=== PATIENT | male | born 1945 | race Caucasian/White ===

== ENCOUNTER → 2020-09-06 10:47 | Outpatient (BNVA) | payer MEDICARE, BC, SELFPAY | PROVIDERS: PCP Internal Medicine; Referring Provider Internal Medicine; Visit Provider Internal Medicine Cardiovascular Disease | DX: I25.10 Atherosclerotic heart disease of native coronary artery without angina pectoris (principal); Z86.711 Personal history of pulmonary embolism; Z95.3 Presence of xenogenic heart valve; I10 Essential (primary) hypertension; Z79.01 Long term (current) use of anticoagulants; C85.10 Unspecified B-cell lymphoma, unspecified site | CPT/HCPCS: 99214; 99213 ==

== ENCOUNTER 2021-04-13 08:01 | Outpatient (CLI) | payer MEDICARE, BC, SELFPAY ==
[2021-04-13 08:27] LABS: Abs Immature Grans 0.03 10^3/uL (0.0-0.06); Absolute Basophil Count 0.02 10^3/uL (0.0-0.2); Absolute Eosinophil Count 0.07 10^3/uL (0.0-0.7); Absolute Lymphocyte Count 0.91 10^3/uL (1.2-3.4); Absolute Monocyte Count 0.48 10^3/uL (0.1-0.8); Absolute Neutrophil Count 4.47 10^3/uL (1.2-6.7); Basophils % 0.3; Eosinophils % 1.2; HCT 39.5 % (40.0-50.0); HGB 13.2 g/dL (13.5-17.5); Immature Grans % 0.5; Lymphocytes % 15.2; MCH 30.8 pg (27.0-33.0); MCHC 33.4 % (32.0-36.0); MCV 92.3 fL (80-95); MPV 8.6 fL (8.0-11.0); Neutrophils % 74.8; Nucleated RBC 0 %; Platelet Count 157 10^3/uL (130-400); RBC 4.28 10^6/uL (4.36-5.78); RDW 14.5 % (11.8-14.1); RDW-SD 49.4 fL; WBC 5.98 10^3/uL (4.4-10.8)
[2021-04-13 08:53] LABS: ALT 27 U/L (16-63); AST 25 U/L (15-37); Albumin 3.8 g/dL (3.4-5.0); Alkaline Phosphatase 84 U/L (46-116); Anion Gap 5.8 mmol/L (3-11); BUN 13 mg/dL (7-18); Bilirubin, Total 1.2 mg/dL (0.2-1.0); CO2 29.2 mmol/L (21.0-32.0); CREATININE 0.8 mg/dL (0.70-1.30); Calcium 8.6 mg/dL (8.5-10.1); Chloride 105 mmol/L (98-107); Glucose 136 mg/dL (74-106); LDH 168 U/L (85-227); Potassium 4.2 mmol/L (3.5-5.1); Sodium 140 mmol/L (136-145); Total Protein 6.8 g/dL (6.4-8.2)
== END 2021-04-13 08:02 | disposition home or self-care (01) ==
LOC: LBO 08:03
PROVIDERS: PCP Internal Medicine; Visit Provider Internal Medicine Hematology & Oncology
DX: C82.08 Follicular lymphoma grade I, lymph nodes of multiple sites (principal)
CPT/HCPCS: 36415; 80053; 83615; 85025

== ENCOUNTER 2021-09-07 04:31 | Outpatient (CLI) | payer MEDICARE, BC, SELFPAY ==
[2021-09-07 10:08] LABS: Abs Immature Grans 0.03 10^3/uL (0.0-0.06); Absolute Basophil Count 0.03 10^3/uL (0.0-0.2); Absolute Eosinophil Count 0.05 10^3/uL (0.0-0.7); Absolute Lymphocyte Count 0.83 10^3/uL (1.2-3.4); Absolute Monocyte Count 0.55 10^3/uL (0.1-0.8); Basophils % 0.5; Eosinophils % 0.9; HCT 41.9 % (40.0-50.0); HGB 14.1 g/dL (13.5-17.5); Immature Grans % 0.5; Lymphocytes % 14.3; MCH 30.9 pg (27.0-33.0); MCHC 33.7 % (32.0-36.0); MCV 91.7 fL (80-95); MPV 9.3 fL (8.0-11.0); Monocytes % 9.5; Neutrophils % 74.3; Platelet Count 164 10^3/uL (130-400); RBC 4.57 10^6/uL (4.36-5.78); RDW 14.1 % (11.8-14.1); RDW-SD 47.7 fL; WBC 5.79 10^3/uL (4.4-10.8)
[2021-09-07 10:20] LABS: ALT 27 U/L (16-63); AST 16 U/L (15-37); Albumin 3.7 g/dL (3.4-5.0); Alkaline Phosphatase 94 U/L (46-116); Anion Gap 3.3 mmol/L (3-11); BUN 8 mg/dL (7-18); CO2 30.7 mmol/L (21.0-32.0); CREATININE 0.9 mg/dL (0.70-1.30); Calcium 8.2 mg/dL (8.5-10.1); Chloride 106 mmol/L (98-107); Glucose 86 mg/dL (74-106); LDH 171 U/L (85-227); Potassium 3.7 mmol/L (3.5-5.1); Sodium 140 mmol/L (136-145); Total Protein 6.7 g/dL (6.4-8.2)
== END 2021-09-07 04:32 | disposition home or self-care (01) ==
LOC: LBO 04:31
PROVIDERS: Internal Medicine Hematology & Oncology; PCP Internal Medicine; Visit Provider Internal Medicine Hematology & Oncology
DX: C82.08 Follicular lymphoma grade I, lymph nodes of multiple sites (principal)
CPT/HCPCS: 36415; 80053; 83615; 85025

== ENCOUNTER 2022-02-22 02:07 | Outpatient (RCR) | payer MEDICARE, BC, SELFPAY | END 2022-03-13 23:59 | disposition home or self-care (01) | LOC: INF 02:07 | PROVIDERS: PCP Internal Medicine; Visit Provider Nurse Practitioner Family | DX: C82.90 Follicular lymphoma, unspecified, unspecified site (principal); Z29.8 Encounter for other specified prophylactic measures | CPT/HCPCS: 96372; Q0221 ==

== ENCOUNTER 2023-01-19 10:08 | Day surgery (SDC) | payer MEDICARE, BC, SELFPAY ==
--- NOTE | 2023-01-18 19:48 | HPE_ITS ---
Assessment and Plan Assessment and plan (1) Nuclear age-related cataract, left eye: Status: Acute Assessment and plan: Assessment: Visually significant cataract, left eye. Plan: Cataract extraction with lens implantation, left eye. History of Present Illness History of Present Illness Chief Complaint: Progressive decreased vision Narrative: The patient is a 77-year-old male with history of progressive decreased vision in his left eye. He is significantly symptomatic with decreased vision at both near and distance. He notes difficulty reading books and road signs are blurry. On examination he was noted to have a moderate nuclear cataract in the left eye. The option of cataract surgery was offered to the patient and he wished to proceed. Review of Systems All systems reviewed & are unremarkable except as noted in HPI and below PFSH All Active Problems Nuclear age-related cataract, left eye (Acute) Bioprosthetic aortic valve replacement during current hospitalization (Acute) History of pulmonary embolism (Acute) Medical History Anxiety Aortic regurgitation Ascending aortic aneurysm 5cm Per pt. states had repaired 2018 Pt. states he f/u cardiology 3 months ago at [facility] Primary care DVT (deep venous thrombosis) Follicular lymphoma Gonarthrosis Heart murmur History of alcohol abuse HLD (hyperlipidemia) Hypertensive disorder Insomnia Open wound of hand with tendon injury Osteoarthritis Postoperative hypothyroidism Presence of IVC filter Pulmonary embolism Pulmonary insufficiency Transient cerebral ischemia Varicose veins of lower extremity Vitamin D deficiency Surgical History History of total left knee replacement (TKR) Social History Smoking/Tobacco Use Status: Former Tobacco Use Quit Date: 05/14/69 Smoking risk assessment performed?: Yes Alcohol Intake: former Drug use: Never Substance use type: does not use Housing: house Do you feel safe at home: Yes Do you feel safe in your relationship?: Yes Meds Allergies and Home Medications Allergies Allergy/AdvReac Type Severity Reaction Status Date / Time No Known Allergies Allergy Verified 01/19/23 10:19 Home Medications Medication Instructions Recorded Confirmed Type acetaminophen 500 mg capsule 500 mg PO Q6H PRN 08/26/19 01/18/23 History apixaban 5 mg tablet (Eliquis) 5 mg PO BID 08/26/19 01/19/23 History atorvastatin 40 mg tablet 40 mg PO DAILY 08/26/19 01/19/23 History levothyroxine 100 mcg capsule 100 mcg PO DAILY 08/26/19 01/19/23 History lorazepam 0.5 mg tablet 0.5 mg PO QHS PRN 08/26/19 01/18/23 History metoprolol succinate 25 mg 12.5 mg PO BID 08/26/19 01/19/23 History tablet,extended release 24 hr (Toprol XL) naltrexone 50 mg tablet 25 mg PO DAILY PRN 08/26/19 01/18/23 History sildenafil 100 mg tablet 100 mg PO DAILY PRN 08/26/19 01/18/23 History vitamin B complex 1 tab PO DAILY 08/26/19 01/19/23 History tamsulosin 0.4 mg capsule (Flomax) 0.8 mg PO DAILY 09/08/19 01/19/23 History latanoprost 0.005 % eye drops 1 drp ophthalmic (eye) HS 01/18/23 01/19/23 History timolol maleate 0.5 % eye drops 1 drp ophthalmic (eye) QAM 01/18/23 01/19/23 History Exam Eyes Other: Most recent ocular examination was significant for corrected visual acuity of 20/30 OD, 20/30 OS. Extract motility is normal. Intraocular pressure is 19 OD, 20 OS. Slit-lamp examination reveals a well-positioned PCIOL OD with clear posterior capsule. The left eye has a moderate nuclear cataract. Dilated funduscopic examination reveals disc cupping of 0.2 OU with normal vessels, macula, peripheral retina and vitreous. Resp Auscultation: clear to auscultation bilaterally Cardio Rate: regular rate Rhythm: regular rhythm
[2023-01-19 10:08] VITALS: BP 129/85; PULSE 66; RESP 18; TEMP 36.4; O2SAT 98
[2023-01-19] MEDS: Tropicam./Phenyleph. (1/2.5%) 5 ML BTL OS ×3 (10:27→11:00)
--- NOTE | 2023-01-19 10:37 | W.ANESPRE ---
General Info Date of Service Date Performed: 01/19/23 Height: 6 ft Weight: 91.4 kg Body Mass Index (BMI): 27.3 Surgical Procedure: Operation Date: 01/19/23 12:10 Proposed Procedure Side Surgeon p Cataract Extraction with IOL Implant Left Zana Montez MD Meds Allergies and Home Medications Allergies Allergy/AdvReac Type Severity Reaction Status Date / Time No Known Allergies Allergy Verified 01/19/23 10:19 Home Medication Medication Instructions Recorded acetaminophen 500 mg capsule 500 mg PO Q6H PRN 08/26/19 apixaban 5 mg tablet (Eliquis) 5 mg PO BID 08/26/19 atorvastatin 40 mg tablet 40 mg PO DAILY 08/26/19 levothyroxine 100 mcg capsule 100 mcg PO DAILY 08/26/19 lorazepam 0.5 mg tablet 0.5 mg PO QHS PRN 08/26/19 metoprolol succinate 25 mg 12.5 mg PO BID 08/26/19 tablet,extended release 24 hr (Toprol XL) naltrexone 50 mg tablet 25 mg PO DAILY PRN 08/26/19 sildenafil 100 mg tablet 100 mg PO DAILY PRN 08/26/19 vitamin B complex 1 tab PO DAILY 08/26/19 tamsulosin 0.4 mg capsule (Flomax) 0.8 mg PO DAILY 09/08/19 latanoprost 0.005 % eye drops 1 drp ophthalmic (eye) HS 01/18/23 timolol maleate 0.5 % eye drops 1 drp ophthalmic (eye) QAM 01/18/23 Current Visit Medications: Current Medications Generic Name Dose Route Start Last Admin Trade Name Freq PRN Reason Stop Dose Admin Acetaminophen 1,000 mg 01/19/23 06:00 Acetaminophen 500 Mg Tab PO 02/18/23 05:59 Q4H PRN PRN Balanced Salt Solution 500 ml 01/19/23 06:00 Balanced Salt Soln.-Plus 500 Ml Bag OP 02/18/23 05:59 DIRECTED CHANDRIKA Miscellaneous Medication 0 ml 01/19/23 06:00 Prednisolone 1%, Moxifloxacin 0.5%, Nepafenac 0.1% 5ml Btl OS 02/18/23 05:59 DIRECTED CHANDRIKA Miscellaneous Medication 0 ml 01/19/23 06:00 01/19/23 10:32 Tropicam./Phenyleph. (1/2.5%) 5 Ml Btl OS 02/18/23 05:59 1 drp DIRECTED CHANDRIKA Administration Tetracaine HCl 0 ml 01/18/23 09:00 Tetracaine 0.5% 5 Ml Btl OS 02/17/23 08:59 DIRECTED CHANDRIKA PFSH Active Problems Active Problems: Problem Status Onset Code Nuclear age-related cataract, left eye H25.12 Bioprosthetic aortic valve replacement during current hospitalization Z95.3 History of pulmonary embolism Z86.711 Medical History Medical History Anxiety Aortic regurgitation Ascending aortic aneurysm 5cm Per pt. states had repaired 2018 Pt. states he f/u cardiology 3 months ago at [facility] DVT (deep venous thrombosis) Follicular lymphoma Gonarthrosis Heart murmur History of alcohol abuse HLD (hyperlipidemia) Hypertensive disorder Insomnia Open wound of hand with tendon injury Osteoarthritis Postoperative hypothyroidism Presence of IVC filter Pulmonary embolism Pulmonary insufficiency Transient cerebral ischemia Varicose veins of lower extremity Vitamin D deficiency Surgical History Surgical History History of total left knee replacement (TKR) Tobacco Smoking/Tobacco Use Status: Former Tobacco Use Alcohol Alcohol Intake: former Substance Use Substance use: Never Substance use type: does not use Vital Signs and Lab Results Vital Signs Most Recent Vital Signs in EMR: Most Recent Vital Signs Temp Pulse Resp BP Pulse Ox 36.4 C L 66 18 129/85 98 01/19/23 10:08 01/19/23 10:08 01/19/23 10:08 01/19/23 10:08 01/19/23 10:08 Lab Results Blood Type / Crossmatch: No Data to Display Complete Blood Count: No Data to Display Complete Metabolic Panel: No Data to Display Liver Function Panel: No Data to Display Coagulation Panel: No Data to Display Cardiac Panel: No Data to Display Arterial Blood Gas: No Data to Display Venous Blood Gas: No Data to Display Pancreas Panel: No Data to Display Thyroid Panel: No Data to Display Infectious Disease: No Data to Display Blood Cultures: No Data to Display Toxicology Panel: No Data to Display Imaging and Studies Imaging and Studies Study information below may be from another EMR and interpreted by another provider. Please see original notes in EMR for more complete details. Echocardiogram Summary: 11/11/21 EF 65%, mild MR, mild TR, trace PVR S/P AVR and aortic root replacement 06/2018 Anesthesia Assessment and Plan Anesthesia History Personal History: No History of Anesthesia Complications Family History: No Family History of Anesthesia Complications Exercise Tolerance Exercise Tolerance: Metabolic Equivalents>4 Pertinent Negatives Pertinent Negatives: No Symptoms of GERD, No Major Cardiovascular Symptoms or Complaints and No Major Pulmonary Symptoms or Complaints Cardiac & Pulmonary Exam Cardiac Exam: Normal S1/S2 Heart Sounds Pulmonary Exam: Clear Bilateral Breath Sounds Implantable Cardiac Device Does patient have a Pacemaker or an ICD?: No Airway Exam Known Difficult Airway: No Mallampati Class: 3 Mouth Opening: Normal (> 3cm) Thyromental Distance: Greater than 3 cm Neck Range of Motion: Full ROM Neck Circumference: Normal Teeth Condition: Normal Dentition (permanent bridge) ASA Classification ASA Score: ASA 2 Emergency Case?: No NPO Status NPO Status: NPO Clears >2 hours, Solids >8 hours Anesthesia Plan Resuscitation Status: Full Code Anesthesia Technique: MAC Anesthesia Airway Planned: Natural Airway Monitors Used: Standard Monitors Preoperative Comments:: Last chemo dose yesterday
[2023-01-19 11:05] VITALS: BMI 27.3
[2023-01-19] MEDS: Balanced Salt Soln.-PLUS 500 ML BAG OP (11:23)
[2023-01-19] MEDS: Lidocaine 1% Pres-Free 5 ML VIAL (11:30)
[2023-01-19] MEDS: Duovisc Viscoelastic System EACH 1 EACH (11:30)
[2023-01-19] MEDS: Phenylephrine/Lidocaine (15/10) MG/ML 1 ML VIAL (11:31)
[2023-01-19] MEDS: Povidone-Iodine Ophth 30 ML BTL (11:32)
[2023-01-19 12:01] VITALS: BP 129/85; PULSE 52; RESP 18; TEMP 36.4; O2SAT 96
--- NOTE | 2023-01-19 12:01 | W.PM.DSUDISC ---
Date of service: 01/19/23 Time of Service: 12:01 Discharge Plan Disposition Patient Disposition: Home Discharge Details Attending Provider: Zana Montez Primary Care Provider: Elen Escamilla Home Meds and New Rx's Prescriptions: No Action tamsulosin [Flomax] 0.4 mg capsule 0.8 mg PO DAILY sildenafil 100 mg tablet 100 mg PO DAILY PRN Rx Instructions: administer 30 minutes to 4 hours before activity Eliquis 5 mg tablet 5 mg PO BID levothyroxine 100 mcg capsule 100 mcg PO DAILY metoprolol succinate [Toprol XL] 25 mg tablet extended release 24 hr 12.5 mg PO BID acetaminophen 500 mg capsule 500 mg PO Q6H PRN lorazepam 0.5 mg tablet 0.5 mg PO QHS PRN atorvastatin 40 mg tablet 40 mg PO DAILY naltrexone 50 mg tablet 25 mg PO DAILY PRN Patient Comments: takes this when he has a drink of ETOH vitamin B complex Tablet 1 tab PO DAILY latanoprost 0.005 % drops 1 drp ophthalmic (eye) HS Patient Comments: INSTILL 1 DROP INTO LEFT EYE AT BEDTIME timolol maleate 0.5 % drops 1 drp ophthalmic (eye) QAM Patient Comments: INSTILL 1 DROP INTO LEFT EYE IN THE MORNING Discharge Instructions Stand Alone Forms: Post-op Topical Cataract, Trav Brewster (DSU) Discharge Orders Discharge Orders: Discharge Order (Routine); Ordered 01/19/23 Ordered By: Zana Montez DS: Diagnosis Discharge Diagnosis (1) Nuclear age-related cataract, left eye: Status: Resolved
--- NOTE | 2023-01-19 12:02 | W.PM.OP ---
Date of service: 01/19/23 Time of Service: 12:02 Operative Note Operative Note DATE OF PROCEDURE: 01/19/23 PRE-OP DIAGNOSIS: Dense nuclear cataract, left eye Poorly dilating pupil, left eye secondary to Flomax POST-OP DIAGNOSIS: same PROCEDURE: Cataract extraction using phacoemulsification with intraocular lens implant, left eye Utilization of pupillary expansion device, due to floppy iris from Flomax treatment Insertion of capsular tension ring due to severe zonular laxity SURGEON: Zana Montez ANESTHESIA TYPE: Local By Surgeon and MAC Refer to Anesthesia Record PATHOLOGY: none sent COMPLICATIONS: None Patient was transported to: same day Patient's condition: stable Implants: Nakul Clareon [id number] Morcher Type 15 capsular tension ring Indications: Progressive decreased vision due to cataract, left eye Poorly dilating pupil, left eye secondary to Flomax treatment Procedure Description: CATARACT SURGERY OPERATIVE REPORT PREOPERATIVE DIAGNOSIS: Dense nuclear cataract, left eye Poorly dilating pupil with floppy iris, secondary to Flomax treatment POSTOPERATIVE DIAGNOSIS: Same OPERATION: Cataract extraction using phacoemulsification with posterior chamber intraocular lens implant, left eye. Pupillary dilation and iris stabilization with pupillary expansion device Insertion of capsular tension ring IOL: IOL Business Intelligence Architect/Model: Nakul Clareon [id number] IOL Power: + 19.0 diopters IOL Serial Number: [id number] Optic Diameter: 6.0mm Haptic/Overall Diameter: 13.0mm PHACO INFO: Nakul VuCast Mediaurion Vision System with OZil and Active Fluidics Cumulative Dispersed Energy (CDE): 28.65 seconds SURGEON: Zana Montez MD, SHANT ANESTHESIA: Monitored Anesthesia Care (MAC), with local sub-tenon's anesthetic infiltration COMPLICATIONS: None SPECIMENS: None INDICATIONS FOR PROCEDURE: The patient is a 77-year-old gentleman who has previously undergone cataract surgery in the right eye several years ago. He now presents with a dense nuclear cataract in the left eye significantly diminished visual acuity. He desires cataract surgery and attempt to improve and maximize his vision. He is currently using a Flomax, and has a poorly dilating pupil. See office notes for detailed information. PROCEDURE: The correct surgical eye was identified and marked as the left eye and the pupil was dilated in the preoperative area using mydriatics and cycloplegics. The dilated pupil size was 4.0 mm. The patient elected to proceed without oral sedation. The patient was brought to the operating room where cardiopulmonary monitoring was instituted and surgical time-out was performed, confirming the correct operative eye and IOL power. Topical anesthesia was administered and ophthalmic povidone-iodine 5% was instilled into the conjunctival fornices. The brian-ocular area was prepped with Betadine 10% solution and draped in the usual sterile fashion for intraocular surgery, including an aperture drape. A Tegaderm transparent film dressing was cut in half and used to cover the lashes and lid margins. Care was taken to sequester the lashes and lid margins under the Tegaderm dressing. A lid speculum was placed between the lids of the operative eye and the Nakul LuxOR Revalia operating microscope was maneuvered into position. Jignesh scissors were then used to make a conjunctival buttonhole approximately 6mm posterior to the limbus in the inferonasal quadrant. Blunt dissection was carried out to expose bare sclera, and a blunt-tipped sub-tenon?s anesthesia cannula was introduced and passed posteriorly along the globe where non-preserved plain lidocaine was injected into posterior sub-Tenon?s space. A sideport knife was used to make a paracentesis port. Intraocular phenylephrine/lidocaine was injected into the anterior chamber. The anterior chamber was then filled with viscoelastic. A dispersive viscoelastic was used initially, but failed to result in significant additional Viscoat dilation. A keratome knife was used construct a two-plane clear corneal tunnel extending 2.0mm into clear cornea. A 7.0 mm pupillary expansion device was then inserted into the pupillary space and engaged with the Kuglen hook. A flap was raised on the anterior capsule and capsulorhexis forceps were used to complete a continuous curvilinear capsulorhexis of 5.5 mm. Significant capsular wrinkling, indicating zonular laxity was noted. Balanced salt solution was then used to perform cortical cleaving hydrodissection and nuclear hydrodelineation until the lens could be freely rotated within the capsular bag. The lens was noted to be highly mobile due to zonular instability. The lens nucleus was then disassembled and removed within the capsular bag and iris plane using phacoemulsification. Residual cortical material was removed using the irrigation/aspiration handpiece. The posterior capsule was carefully polished to remove as much residual lens epithelial cells as safely possible. The capsular bag was then inflated and the anterior chamber deepened with viscoelastic. A Morcher Type 15 capsular tension ring was then inserted into the pupillary space without difficulty. The lens implant described above was inserted into the capsular bag using the Nakul Autonome Injector. A Kuglen hook was used to dial the IOL into position. The pupillary expansion device was then removed in the reverse order of its insertion. Residual viscoelastic was then removed first from posterior to the IOL, then from the anterior chamber using the I/A handpiece. The lens implant was noted to center nicely within the capsular bag. The incisions were stromally hydrated, and the anterior chamber was reformed using BSS. Then 0.5cc of moxifloxacin 1.0mg/ml were injected into the capsular bag and anterior chamber. The incisions were checked with a Weck spear and found to be secure. Several drops of ophthalmic povidone-iodine 5% were then applied to the eye followed by two drops of Imprimis combination prednisolone/moxifloxacin/nepafenac solution. The drapes were removed and a clear plastic protective eye shield was placed over the eye. The patient was then returned to Same Day Surgery in stable condition.
--- NOTE | 2023-01-20 20:06 | W.ANESPOSTOP ---
Postoperative Evaluation Date, Time and Location Date Performed: 01/19/23 Time Performed: 12:03 Patient Location: Day Surgery Unit Vital Signs Most Recent Imported Vital Signs: Most Recent Vital Signs Temp Pulse Resp BP Pulse Ox 36.4 C L 52 L 18 129/85 96 01/19/23 12:01 01/19/23 12:01 01/19/23 12:01 01/19/23 12:01 01/19/23 12:01 Pain Score Most Recent Pain Score: Most Recent Pain Score Pain Level 0 01/19/23 12:01 Assessment Mental Status: Awake (Alert & Oriented to Patient Baseline) Airway and Respiratory Function: Patent airway with normal (patient baseline) respiratory exam Cardiovascular Function: Hemodynamically Stable Hydration Status: Adequately Hydrated Nausea & Vomiting: No Nausea or Vomiting Pain: Pt. Denies Any Pain Peripheral Nerve Block: Patient did not receive a nerve block
== END 2023-01-19 12:32 | disposition home or self-care (01) ==
PROVIDERS: PCP Internal Medicine; Visit Provider Ophthalmology
PROC: (CPT 66982; principal; 2023-01-19 12:00)
DX: H25.12 Age-related nuclear cataract, left eye (principal); Z86.711 Personal history of pulmonary embolism; H21.81 Floppy iris syndrome; Z79.83 Long term (current) use of bisphosphonates
CPT/HCPCS: 66982; V2632

== ENCOUNTER 2024-04-09 14:35 | Outpatient (CLI) | payer MEDICARE, BC, SELFPAY ==
[2024-04-09 09:42] LABS: Abs Immature Grans 0.04 10^3/uL (0.0-0.06); Absolute Basophil Count 0.02 10^3/uL (0.0-0.2); Absolute Eosinophil Count 0.05 10^3/uL (0.0-0.7); Absolute Lymphocyte Count 0.84 10^3/uL (1.2-3.4); Absolute Monocyte Count 0.76 10^3/uL (0.1-0.8); Basophils % 0.3 %; Eosinophils % 0.8 %; HCT 39.6 % (40.0-50.0); HGB 13.7 g/dL (13.5-17.5); Immature Grans % 0.6 %; Lymphocytes % 13.1 %; MCH 32.6 pg (27.0-33.0); MCHC 34.6 % (32.0-36.0); MCV 94 fL (80-95); MPV 8.9 fL (8.0-11.0); Monocytes % 11.9 %; Neutrophils % 73.3 %; Platelet Count 173 10^3/uL (130-400); RDW 13.5 % (11.8-14.1); RDW-SD 47.3 fL; WBC 6.41 10^3/uL (4.4-10.8)
[2024-04-09 10:06] LABS: ALT 27 U/L (16-63); AST 20 U/L (15-37); Albumin 3.5 g/dL (3.4-5.0); Alkaline Phosphatase 85 U/L (46-116); Anion Gap 9.2 mmol/L (3-11); BUN 8 mg/dL (7-18); Bilirubin, Total 0.97 mg/dL (0.2-1.0); CO2 26.8 mmol/L (21.0-32.0); CREATININE 0.9 mg/dL (0.70-1.30); Calcium 8.6 mg/dL (8.5-10.1); Chloride 104 mmol/L (98-107); Glucose 101 mg/dL (74-106); LDH 192 U/L (85-227); Sodium 140 mmol/L (136-145); Total Protein 6.6 g/dL (6.4-8.2)
[2024-04-11 09:17] LABS: IgA 280 mg/dL (85-499); IgG 515 mg/dL (610-1616); IgM 33 mg/dL (35-242)
== END 2024-04-09 14:36 | disposition home or self-care (01) ==
LOC: LBO 14:35
PROVIDERS: PCP Internal Medicine; Visit Provider Internal Medicine Hematology & Oncology
DX: E04.1 Nontoxic single thyroid nodule (principal); C82.90 Follicular lymphoma, unspecified, unspecified site
CPT/HCPCS: 36415; 80053; 82784; 83615; 84443; 85025